=== PATIENT | female | born 1955 | race Caucasian/White ===

== ENCOUNTER → 2020-07-21 | Day surgery (SDC) | payer OTHER, BC ==
[~2020-07-21] VITALS: Ht 172.7 cm; Wt 113.4 kg
[2020-07-21] VITALS (7 sets, daily range): BP systolic 100–137; BP diastolic 56–76
== END | disposition home or self-care (01) ==
LOC: DS 09:58 → OR 13:00
PROVIDERS: ATTEND Internal Medicine Cardiovascular Disease
DX: R07.9 Chest pain, unspecified (principal)
CPT/HCPCS: CLHCL; 76937; C1894; J2001; J2250; J3010; J7040; Q9967